=== PATIENT | female | born 1965 | race Two or more races ===

== ENCOUNTER 2023-08-03 14:37 | Emergency (ER) | payer OTHER ==
[~2023-08-03] VITALS: Ht 167.6 cm; Wt 50.8 kg
[2023-08-03] MEDS ORDERED: LUMIGAN2.5 M1 (15:28)
== END 2023-08-03 17:18 | disposition home or self-care (01) ==
LOC: ER 14:38
DX: H11.31 Conjunctival hemorrhage, right eye (principal); H40.89 Other specified glaucoma